=== PATIENT | female | born 1950 | race Caucasian/White ===

== ENCOUNTER 2022-01-22 10:48 | Emergency (ER) | payer MEDICARE ==
[~2022-01-22] VITALS: Ht 160 cm; Wt 66.0 kg
[2022-01-22 10:57] VITALS: BP 123/65
== END 2022-01-22 12:52 | disposition left against medical advice (07) ==
LOC: ER 11:16
DX: F33.9 Major depressive disorder, recurrent, unspecified (principal); Z56.9 Unspecified problems related to employment
CPT/HCPCS: 99281

== ENCOUNTER 2022-08-24 15:31 | Emergency (ER) | payer OTHER, MEDICAID ==
[~2022-08-24] VITALS: Ht 157.5 cm; Wt 87.0 kg
[2022-08-24 15:44] VITALS: BP 132/81
[2022-08-24] MEDS ORDERED: ONDANSETRON 4MG ODT PO ONE (18:30)
[2022-08-24] MEDS ORDERED: ACETAMINOPHEN 325MG TABLET PO ONE (18:30)
[2022-08-24] MEDS ORDERED: SODIUM CHLORIDE 0.9% 1,000 ML IV ONE (18:30)
== END 2022-08-24 18:34 | disposition left against medical advice (07) ==
LOC: ER 15:31
DX: M25.519 Pain in unspecified shoulder (principal); Z53.21 Procedure and treatment not carried out due to patient leaving prior to being seen by health care provider
CPT/HCPCS: 99281; J7030